=== PATIENT | female | born 1955 | race Caucasian/White ===

== ENCOUNTER 2023-10-19 13:09 | Emergency (ER) | payer OTHER, SELFPAY ==
[2023-10-19 13:11] VITALS: BP 144/85
--- NOTE | 2023-10-19 13:24 | ED.GENMED ---
History of Present Illness
<Carmel Kebede PA-C - Last Filed: 10/19/23 22:26>
General
Chief Complaint: Skin Surface Trauma
Time Seen by Provider: 10/19/23 13:22
Travel History
Have you had any contact with someone who has COVID-19?: No
Do you have any symptoms of coronavirus? Fever > 100 degrees, chills, cough, shortness of breath, sore throat, loss of taste or smell, muscle aches, or headache?: No
History of Present Illness
History of Present Illness:
67 y/o female with a PMH of HTN, anxiety presenting to the emergency department via EMS for a deer attack. Patient states that she was in the park today walking her small dog when she looked into the llamas and noticed a deer staring at her. The deer
did not have antlers. The deer than, unprovoked, charged at her and patient states that the deer head butted her to the ground, and subsequently stomped on her and dragged the hooves across her body. Patient unsure if the deer bit her. Patient
states that the deer than ran away and she subsequently called EMS. Patient denies head trauma, loss of consciousness, abdominal pain, chest pain, shortness of breath.
Review of Systems
<Carmel Kebede PA-C - Last Filed: 10/19/23 22:26>
Review of Systems
All Other Systems: ROS reviewed and negative except as documented in HPI and ROS
Phy Exam
<Carmel Kebede PA-C - Last Filed: 10/19/23 22:26>
Physical Exam
Physical Exam:
Vitals: Vital signs are stable.
General: Patient is well appearing, no acute distress.
Skin: 4 cm linear laceration noted to the left forearm. 5 cm flap laceration overlying the left olecranon. Extensive abrasions noted across the upper back. No spinal bony tenderness.
Head: Normocephalic, atraumatic
Neck: No cervical tenderness
Cardiac: RRR, no murmurs. No tenderness to palpation of the external chest wall.
Pulm: Normal respiratory effort, no wheezes, rales, rhonchi.
Peripheral Vascular: No lower extremity swelling or edema.
Abdomen: No tenderness to palpation. Small abrasion noted to right. No ecchymosis.
Musculoskeletal: No bony tenderness to palpation to b/l upper and lower extremities. 5/5 strength in b/l upper and lower extremities. No bony tenderness to palpation.
Neuro: CN II-XII intact, no focal deficits.
Psychiatric: Anxious affect.
Course
<Carmel Kebede PA-C - Last Filed: 10/19/23 22:26>
Orders/Labs/Results
Orders:
Orders
10/19/23 14:06
Ibuprofen [Motrin] 600 mg PO NOW STA
Tetanus/Diphth/Acelpertussis [Adacel] 0.5 ml IM .ONCE ONE
10/19/23 14:09
Vital Signs- Treatment ONCE
Frequency: Once
Comment: weight for rabies
10/19/23 15:46
Rabies Immune Globulin/Pf [HyperRAB] 1,600 unit IM NOW STA
10/19/23 16:00
Rabies Vaccine (Pcec)/Pf [Rabavert Rabies Vacc W-Diluent] 2.5 unit IM .ONCE ONE
Vital Signs
Initial and Last Documented VS:
Initial Vital Signs
Temp Pulse Resp BP Pulse Ox
98.6 F 86 18 144/85 97
10/19/23 13:11 10/19/23 13:11 10/19/23 13:11 10/19/23 13:11 10/19/23 13:11
Last Documented Vital Signs
Temp Pulse Resp BP Pulse Ox
98.6 F 86 18 144/85 97
10/19/23 13:11 10/19/23 13:11 10/19/23 13:11 10/19/23 13:11 10/19/23 13:11
<Imer Turner MD - Last Filed: 10/19/23 15:57>
Orders/Labs/Results
Orders:
Orders
10/19/23 14:06
Ibuprofen [Motrin] 600 mg PO NOW STA
Tetanus/Diphth/Acelpertussis [Adacel] 0.5 ml IM .ONCE ONE
10/19/23 14:09
Vital Signs- Treatment ONCE
Frequency: Once
Comment: weight for rabies
10/19/23 15:46
Rabies Immune Globulin/Pf [HyperRAB] 1,600 unit IM NOW STA
10/19/23 16:00
Rabies Vaccine (Pcec)/Pf [Rabavert Rabies Vacc W-Diluent] 2.5 unit IM .ONCE ONE
Vital Signs
Initial and Last Documented VS:
Initial Vital Signs
Temp Pulse Resp BP Pulse Ox
98.6 F 86 18 144/85 97
10/19/23 13:11 10/19/23 13:11 10/19/23 13:11 10/19/23 13:11 10/19/23 13:11
Last Documented Vital Signs
Temp Pulse Resp BP Pulse Ox
98.6 F 86 18 144/85 97
10/19/23 13:11 10/19/23 13:11 10/19/23 13:11 10/19/23 13:11 10/19/23 13:11
Procedures
<Carmel Kebede PA-C - Last Filed: 10/19/23 22:26>
Laceration Closure
Left Anterior Arm:
Status of Wound: dirty (no obvious purulence/dirt/foreign body, dirty by nature of mechanism)
Size of Wound in cm: 4
Description of Wound Edges: sharp
Preparation: cleaned with saline
Anesthesia: 1% Lidocaine with epi
Wound exploration: explored to base- no FB
Type of Closure: single layer closure
Skin Closure Material: 4-0 prolene
Number of sutures: 3
Additional information:
loosely closed, steri strips added
Left Elbow:
Status of Wound: dirty
Size of Wound in cm: 5
Description of Wound Edges: flap-well vascularized
Preparation: cleaned with saline and cleaned with SurClens
Anesthesia: 1% Lidocaine with epi
Wound exploration: explored to base- no FB
Type of Closure: single layer closure
Number of sutures: 4
Additional information:
loosely closed, thoroughly irrigated, sutures widely spaced to account for drainage
<CHAZ Pérez Last Filed: 10/19/23 22:26>
MDM/Problems Addressed
Differential Diagnosis Includes:
laceration, abrasion, forearm contusion, elbow fracture, rabies exposure
MDM/Problems Addressed:
animal attack, lacerations, rabies prophylaxis
Chronic conditions affecting care: HTN and Psychiatric illness
Acute Exacerbation and/or Progression of Chronic Illness: HTN
<CHAZ Pérez Last Filed: 10/19/23 22:26>
*Pulse Oximetry
Patient hypoxic: no
*Critical Care Note
Total Time (30-74mins, 75-104mins- exclusive of procedures): Not Applicable
Data Reviewed
Review of Other/Old Records Reveals: Records (no previous ER visits to review) and Discharge Summary (no discharge summaries to review)
Source: patient and records
<CHAZ Pérez Last Filed: 10/19/23 22:26>
Patient Management
Escalation/DeEscalation of care consider admission/obs:
Patient presents after deer attack, unprovoked attacked in the park. Exam reveals 2 lacerations on the left arm with multiple abrasions throughout the body. Considering no bony tenderness, no deformities, intact neuro exam, no abdominal tenderness,
no chest pain, no imaging indicated at this time.
Wounds were thoroughly irrigated with Angiocath. Gaping wounds were loosely closed.
Patient tetanus updated. Considering this was an unprovoked attack and deer can be carries of rabies, rabies prophylaxis was given, full dose of immunoglobin injected into both wounds. Discussed vaccine schedule for follow up. Patient in agreement
with plan. Patient allergic to penicillins, doxycycline started for infection prophylaxis. Return precautions given, patient stable for discharge.
ED Attending Note
<Carmel Kebede PA-C - Last Filed: 10/19/23 22:26>
-
Portions of this chart may have been created with voice recognition software.� Occasional wrong word or��sound alike� substitutions may have occurred due to the inherent limitations of voice recognition software.
<Imer Turner MD - Last Filed: 10/19/23 15:57>
ED Attending Note
Patient seen and examined by attending physician: Yes
ED Attending Note:
Patient presents to ED secondary to left arm laceration, which occurred when she was knocked down by a deer, while she was walking with her dog at the park. Denies head injury. Denies loss of sensation or weakness. Denies any other injuries from
the fall. Patient unsure of her last tetanus vaccination.
Physical Exam
General: no apparent distress, not acutely ill. afebrile
Head: nc/at. eomi
Neck: supple. normal range of motion.
Neuro: alert and oriented. no focal neurological deficits
Skin: multiple lacerations noted over LUE x 2 - 1) an approx 3cm horizontal, superficial laceration 2) an approx 4cm superficial, c-shaped laceration, without active bleeding.
Psychiatric: well kept. interactive and cooperative
Extremities: no edema. no calf tenderness.
Wound will be approximated loosely with sutures after extensive cleaning. Augmentin to be started prophylactically. Patient also will be started on rabies immunoglobulin, as well as vaccination.
Discharge Plan
Departure
Patient Disposition: Home (Routine Discharge)
Date of Disposition: 10/19/23
Time of Disposition: 16:34
Patient with high blood pressure during this ER visit?: Yes
Condition: Good
Discharge Problem:
Struck by other mammals, initial encounter, Need for post exposure prophylaxis for rabies
Instructions: Wound Care (DC), Laceration Repair With Stitches (DC), BLOOD PRESSURE
Prescriptions:
New
RabAvert (PF) 2.5 unit Suspension For Reconstitution
1 ml IM . DIRECTED Qty: 3 0RF
Rx Instructions:
See Rabies Vaccine Post Exposure Prophylaxis Instruction Sheet for Dosing Instructions
doxycycline hyclate 100 mg capsule
100 mg PO BID 5 Days Qty: 10 0RF
Activity Restrictions/Additional Instructions:
Please return to the emergency department should you experience purulent drainage from the wound, surrounding redness from the wound, increasing pain, fevers or chills.
Please stop azithromycin, please start Doxycycline. We have sent Doxycycline to your pharmacy. Please take one tablet twice a day for 5 days.
Please report to the infusion center on the following dates with the paper script to get your vaccine:
10/22/2023
10/26/2023
11/02/2023
Please return to the emergency department or your primary care provider to have your sutures removed in 7-10 days. Please keep the wound dry for 24-48 hours. Please change dressing once daily.
Interventions
Interventions:
*Risk Screen - Suicide Last Done: 10/19/23 13:43
*General Assessment Last Done: 10/19/23 13:43
*Neglect/Abuse Screening Last Done: 10/19/23 13:43
*ED COVID-19 Vaccine History Last Done: 10/19/23 13:43
*Nursing Disposition Last Done: 10/19/23 17:19
ED-Musculoskeletal Assessment Last Done: 10/19/23 13:48
ED-Skin Assessment Last Done: 10/19/23 13:48
Discharge Date and Time
Discharge Date/Time: 10/19/23 17:20
Print Language: RUSSIAN
[2023-10-19] MEDS: MOTRIN 600 MG PO (14:48)
[2023-10-19] MEDS: ADACEL 0.5 ML IM (14:49)
[2023-10-19] MEDS: HyperRAB 1600 UNIT IM (16:23)
[2023-10-19] MEDS: RABAVERT RABIES VACC W-DILUENT 2.5 UNIT IM (16:24)
== END 2023-10-19 17:20 | disposition home or self-care (01) ==
LOC: EMR 13:09
PROVIDERS: EMERGENCY PHYSICIAN Emergency Medicine; FAMILY PHYSICIAN Internal Medicine
DX: S41.122A Laceration with foreign body of left upper arm, initial encounter (principal); S20.419A Abrasion of unspecified back wall of thorax, initial encounter; W55.32XA Struck by other hoof stock, initial encounter; Y93.K1 Activity, walking an animal; Y92.830 Public park as the place of occurrence of the external cause; Z23 Encounter for immunization; Z20.3 Contact with and (suspected) exposure to rabies
CPT/HCPCS: 99284; 12032; 90471; 96372; 90472; 90375; 90675; 90715

== ENCOUNTER 2023-10-22 12:58 | Emergency (ER) | payer OTHER, SELFPAY ==
[2023-10-22 13:00] VITALS: BP 121/77
--- NOTE | 2023-10-22 13:08 | ED.GENMED ---
History of Present Illness
General
Chief Complaint: Rabies
Source: patient
Time Seen by Provider: 10/22/23 13:04
Travel History
Have you had any contact with someone who has COVID-19?: No
Do you have any symptoms of coronavirus? Fever > 100 degrees, chills, cough, shortness of breath, sore throat, loss of taste or smell, muscle aches, or headache?: No
History of Present Illness
History of Present Illness:
67-year-old female with past medical history of hypertension presenting back to the emergency department for her second rabies vaccine. She has the remaining 2 vaccines scheduled outpatient infusion center. She has no physical concerns at this time
Past History
Past History
ED Past Medical History: HTN and Psychiatric
ED Past Surgical History: None
Social History
Tobacco: Non-smoker
Alcohol: None
Drug: None
Personal:
Living: with family
Review of Systems
Review of Systems
All Other Systems: ROS reviewed and negative except as documented in HPI and ROS
Phy Exam
Physical Exam
Physical Exam:
GENERAL: Alert , in no apparent distress
EYE: conjunctiva clear
Head: Normocephalic atraumatic
NECK: Supple,
ENT: mmm.
LUNGS: no acute respiratory distress
NEUROLOGICAL: Alert and oriented
SKIN: Warm and dry, skin intact.
MUSCULOSKELETAL: well perfused.
PSYCH: Normal and appropriate interaction.
Scores
Heart Failure Risk
Heart Failure Risk Score: Not Applicable
Heart Score for Chest Pain Patients
STEMI patient?: Not applicable
Withdrawal Assessment of Alcohol
Withdrawal Assessment Completed?: Not applicable
Course
Orders/Labs/Results
Orders:
Orders
10/22/23 13:15
Rabies Vaccine (Pcec)/Pf [Rabavert Rabies Vacc W-Diluent] 2.5 unit IM .ONCE ONE
Vital Signs
Initial and Last Documented VS:
Initial Vital Signs
Temp Pulse Resp BP Pulse Ox
98.1 F 78 16 121/77 98
10/22/23 13:00 10/22/23 13:00 10/22/23 13:00 10/22/23 13:00 10/22/23 13:00
Last Documented Vital Signs
Temp Pulse Resp BP Pulse Ox
98.1 F 78 16 121/77 98
10/22/23 13:00 10/22/23 13:00 10/22/23 13:00 10/22/23 13:00 10/22/23 13:00
MDM/Problems Addressed
MDM/Problems Addressed:
67-year-old female presenting to the emergency department for second rabies vaccine. She has no concerns at this time. Second dose given. She will follow-up with the outpatient infusion center for remaining dosages.
*Pulse Oximetry
Patient hypoxic: no
*Critical Care Note
Total Time (30-74mins, 75-104mins- exclusive of procedures): Not Applicable
ED Attending Note
-
Portions of this chart may have been created with voice recognition software.� Occasional wrong word or��sound alike� substitutions may have occurred due to the inherent limitations of voice recognition software.
Discharge Plan
Departure
Patient Disposition: Home (Routine Discharge)
Date of Disposition: 10/22/23
Time of Disposition: 13:08
Patient with high blood pressure during this ER visit?: No
Discharge Problem:
Encounter for immunization
Prescriptions:
No Action
RabAvert (PF) 2.5 unit Suspension For Reconstitution
1 ml IM . DIRECTED Qty: 3 0RF
Rx Instructions:
See Rabies Vaccine Post Exposure Prophylaxis Instruction Sheet for Dosing Instructions
doxycycline hyclate 100 mg capsule
100 mg PO BID 5 Days Qty: 10 0RF
Discharge Date and Time
Print Language: YI
[2023-10-22] MEDS: RABAVERT RABIES VACC W-DILUENT 2.5 UNIT IM (13:23)
== END 2023-10-22 13:34 | disposition home or self-care (01) ==
LOC: EMR 12:58
PROVIDERS: EMERGENCY PHYSICIAN Emergency Medicine; FAMILY PHYSICIAN Internal Medicine
DX: Z23 Encounter for immunization (principal); Z20.3 Contact with and (suspected) exposure to rabies; I10 Essential (primary) hypertension; Z88.0 Allergy status to penicillin; Z88.2 Allergy status to sulfonamides
CPT/HCPCS: 99282; 90471; 90675

== ENCOUNTER 2023-10-26 14:18 | Outpatient (RCR) | payer OTHER, SELFPAY ==
[2023-10-26 14:53] VITALS: BP 134/75
[2023-10-26] MEDS: RABAVERT RABIES VACC W-DILUENT 2.5 UNIT IM (15:15)
== END 2023-10-27 10:36 | disposition home or self-care (01) ==
LOC: OID 14:18
PROVIDERS: ATTENDING PHYSICIAN Physician Assistant; FAMILY PHYSICIAN Internal Medicine
DX: Z20.3 Contact with and (suspected) exposure to rabies (principal); Z23 Encounter for immunization
CPT/HCPCS: 90471; 90675

== ENCOUNTER 2023-11-02 14:08 | Outpatient (RCR) | payer OTHER, SELFPAY ==
[2023-11-02 14:25] VITALS: BP 126/79
[2023-11-02] MEDS: RABAVERT RABIES VACC W-DILUENT 2.5 UNIT IM (14:39)
== END 2023-11-03 10:42 | disposition home or self-care (01) ==
LOC: OID 14:08
PROVIDERS: ATTENDING PHYSICIAN Physician Assistant; FAMILY PHYSICIAN Internal Medicine
DX: Z20.3 Contact with and (suspected) exposure to rabies (principal); Z23 Encounter for immunization
CPT/HCPCS: 90471; 90675